=== PATIENT | female | born 1985 | race African-American/Black ===

== ENCOUNTER 2017-02-08 12:29 | Emergency (ER) | payer OTHER, SELFPAY | END 2017-02-08 14:43 | disposition home or self-care (01) | LOC: ERS 12:29 | DX: J11.1 Influenza due to unidentified influenza virus with other respiratory manifestations (principal) | CPT/HCPCS: 87081; 87430; 99284 ==

== ENCOUNTER → 2017-04-11 | Outpatient (CLI) | payer OTHER | LOC: BICRAD 13:00 | PROVIDERS: ATTEND Orthopaedic Surgery | DX: R76.11 Nonspecific reaction to tuberculin skin test without active tuberculosis (principal) | CPT/HCPCS: 71045 ==

== ENCOUNTER 2018-01-23 18:54 | Emergency (ER) | payer SELFPAY ==
[2018-01-23] MEDS ORDERED: Acetaminophen 500 MG TAB ONE (19:10)
[2018-01-23] MEDS ORDERED: Dexamethasone 10 MG/ML VIAL ONE (19:20)
== END 2018-01-23 19:52 | disposition home or self-care (01) ==
LOC: ERS 18:54
DX: J02.9 Acute pharyngitis, unspecified (principal)
CPT/HCPCS: 87081; 87430; 87804; 99284; J1100

== ENCOUNTER 2018-05-19 05:43 | Emergency (ER) | payer SELFPAY ==
[2018-05-19 07:04] LABS: #Eosinphils 0.1 thou/uL (0.0-0.7); #Lymphocytes 2.1 thou/uL (1.20-3.40); #Monocytes 0.5 thou/uL (0.11-0.59); #Neutrophils 6.6 thou/uL (1.40-6.50); %Basophils 0.2 % (0.0-1.0); %Eosinophils 1.3 % (0.0-10.0); %Lymphocytes 22.2 % (21.0-51.0); %Neutrophils 71.3 % (42.0-75.0); Hemoglobin 12.6 g/dL (12.0-16.0); Mean Corpuscular HGB CONC 30.9 g/dL (32.0-36.0); Mean Corpuscular Hemoglobin 24.7 pg (27.0-31.0); Mean Corpuscular Volume 79.8 fL (78.0-98.0); Mean Platelet Volume 8.4 fL (7.4-10.4); Platelet Count 327 thou/uL (130-400); RBC Distribution Width 14.1 % (11.5-14.5); Red Blood Cell (RBC) Count 5.09 mill/uL (4.20-5.40); White Blood Cell (WBC) Count 9.3 thou/uL (4.8-10.8)
[2018-05-19 07:27] LABS: ALT (SGPT) 11 U/L (8-55); AST (SGOT) 11 U/L (5-34); Albumin 3.9 g/dL (3.5-5.0); Alkaline Phosphatase 78 U/L (40-150); Anion Gap 12 mmol/L (10-20); BUN (Urea Nitrogen) 8 mg/dL (7.0-18.7); Bilirubin, Total 0.3 mg/dL (0.2-1.2); CK (CPK) 84 U/L (29-168); Calc. Creatinine Clearance 0 mL/min (70-130); Carbon Dioxide 26 mmol/L (22-29); Chloride 106 mmol/L (98-107); Estimated GFR-MDRD Greater than 90; Globulin 4.4 g/dL (2.4-3.5); Glucose 107 mg/dL (70-105); Potassium 3.9 mmol/L (3.5-5.1); Protein, Total 8.3 g/dL (6.0-8.3); Sodium 140 mmol/L (136-145)
--- NOTE | 2018-05-19 07:51 | RAD ---
FXR Chest 1 View Portable History: [Chest pain] Comparison: Radiograph December 09, 2017 Findings: Chronic elevation left lateral hemidiaphragm. No pneumothorax. No effusion. No airspace con solidation. Cardiac silhouette and mediastinal contours are within normal limits. Impression: No acute intrathoracic abnormality.
[2018-05-19] MEDS ORDERED: Ondansetron ODT 8 MG TAB ONE (07:58)
[2018-05-19 08:16] LABS: Blood, Urine Large (Negative)
[2018-05-19 08:17] LABS: Clarity Cloudy (Clear)
[2018-05-19 08:18] LABS: Glucose, Urine (Dipstick) Unable to Interpret mg/dL (Negative); Nitrite Unable to Interpret (Negative); Protein, Urine (Dipstick) Unable to Interpret mg/dL (Neg-Trace)
[2018-05-19 08:19] LABS: Bilirubin Unable to Interpret (Negative); Urobilinogen UNABLE TO INTERPRET mg/dL (0.2-1.0)
[2018-05-19 08:26] LABS: Leukocyte Large (Negative)
[2018-05-19 08:27] LABS: RBC/HPF GREATER THAN 50-TNTC HPF (0-3)
[2018-05-19] MEDS ORDERED: Ibuprofen 800 MG TAB ONE (08:27)
[2018-05-19] MEDS ORDERED: Acetaminophen 500 MG TAB ONE (08:27)
[2018-05-19 08:28] LABS: Bacteria/HPF 1+ HPF (None Seen)
[2018-05-19] MEDS ORDERED: cefTRIAXone\\ROCEPHIN 2 GM VIAL ONE (08:41)
[2018-05-19] MEDS ORDERED: Lidocaine 1% PF 5 ML VIAL ONE (08:41)
== END 2018-05-19 09:27 | disposition home or self-care (01) ==
LOC: ERS 05:43
DX: N39.0 Urinary tract infection, site not specified (principal)
CPT/HCPCS: 36415; 71045; 80053; 81003; 81015; 82550; 84484; 85025; 93005; 96372; J0696; J2001

== ENCOUNTER 2018-07-28 18:02 | Emergency (ER) | payer SELFPAY ==
[2018-07-28] MEDS ORDERED: Piperacillin/Tazobactam 3.375 GM VIAL ONE (19:36)
[2018-07-28 20:13] LABS: Hemoglobin 12.3 g/dL (12.0-16.0); Mean Corpuscular HGB CONC 31.2 g/dL (32.0-36.0); Mean Corpuscular Hemoglobin 24.3 pg (27.0-31.0); Mean Corpuscular Volume 77.8 fL (78.0-98.0); Mean Platelet Volume 8.9 fL (7.4-10.4); Platelet Count 325 thou/uL (130-400); RBC Distribution Width 14.9 % (11.5-14.5); Red Blood Cell (RBC) Count 5.09 mill/uL (4.20-5.40); White Blood Cell (WBC) Count 11.3 thou/uL (4.8-10.8)
--- NOTE | 2018-07-28 20:15 | CT ---
CT OF NECK PERFORMED WITH CONTRAST ENHANCEMENT: 07/28/18 HISTORY: Boil on right side of neck. The lung apices are clear. Thyroid gland appears unremarkable. Vocal cord region is normal. Epiglotti s and parapharyngeal spaces are clear. No evidence of any parotid or submandibular masses. There is some periparotid lymph nodes noted. The re is also some mild jugular chain adenopathy which is bilateral symmetric and felt to be reactive. N o abscess or mass demonstrated. IMPRESSION: Some mildly prominent lymph nodes in the jugular chain region and posterior neck which are symmetric and felt to be reactive in nature. POS: [facility]
[2018-07-28 20:16] LABS: BHCG - Serum Negative (NEGATIVE); Pregs Control Background? CLEAR/WHITE (CLR/WHITE); Pregs Control Bar Appear? YES (CONTROL BAR)
[2018-07-28 20:23] LABS: #Basophils 0.1 thou/uL (0.0-0.2); #Eosinphils 0.1 thou/uL (0.0-0.7); #Lymphocytes 2.7 thou/uL (1.20-3.40); #Monocytes 0.5 thou/uL (0.11-0.59); #Neutrophils 7.9 thou/uL (1.40-6.50); %Basophils 0.9 % (0.0-1.0); %Eosinophils 1.1 % (0.0-10.0); %Lymphocytes 23.8 % (21.0-51.0); %Monocytes 4.5 % (0.0-10.0); %Neutrophils 69.8 % (42.0-75.0); MDiff Complete? YES; Microcytosis SLIGHT = 6-15 cells (100X) (0-5/hpf); Platelet Morphology Comment Appears Adequate
[2018-07-28 20:24] LABS: Anion Gap 12 mmol/L (10-20); BUN (Urea Nitrogen) 7 mg/dL (7.0-18.7); Calc. Creatinine Clearance 0 mL/min (70-130); Calcium 9.2 mg/dL (7.8-10.44); Carbon Dioxide 23 mmol/L (22-29); Chloride 107 mmol/L (98-107); Estimated GFR-MDRD Greater than 90; Glucose 87 mg/dL (70-105); Sodium 138 mmol/L (136-145)
[2018-07-28] MEDS ORDERED: Ibuprofen 800 MG TAB ONE (21:01)
== END 2018-07-28 21:49 | disposition home or self-care (01) ==
LOC: SCSER 18:02
DX: M54.2 Cervicalgia (principal); L03.811 Cellulitis of head [any part, except face]
CPT/HCPCS: 70491; 80048; 84703; 85025; J2543; J3370